=== PATIENT | male | born 1955 | race Hispanic/Latino ===

== ENCOUNTER 2017-01-16 10:03 | Day surgery (SDC) | payer OTHER ==
[2017-01-03 12:09] VITALS: BMI 29.2
[2017-01-16] MEDS ORDERED: Lidocaine 4% (Laryng-O-Jet) Kit MM ONE (12:08)
[2017-01-16] MEDS ORDERED: Midazolam 2 MG/2 ML VIAL ONE (12:08)
[2017-01-16] MEDS ORDERED: Propofol 10 mg/ml Inj (20 ML) ONE (13:06)
--- NOTE | 2017-01-16 20:31 | CARD ---
APPROVED REPORT EXAM: Two-dimensional and M-mode echocardiogram with Doppler and color Doppler. Other Information Quality : GoodRhythm : INDICATION CVA/TIA LEFT VENTRICLE The left ventricle is normal size. There is normal left ventricular wall thickness. The left ventricular function is normal. The left ventricular ejection fraction is within the normal range. There is normal LV segmental wall motion. No left ventricle thrombus noted on this study. RIGHT VENTRICLE The right ventricle is normal size. There is normal right ventricular wall thickness. The right ventricular systolic function is normal. ATRIA No thrombus is seen in the left atrium or the Atrial appendage The interatrial septum is intact with no evidence for an atrial septal defect. AORTIC VALVE The aortic valve is normal in structure. MITRAL VALVE The mitral valve is normal in structure. TRICUSPID VALVE The tricuspid valve is normal in structure. GREAT VESSELS The aortic root is normal in size. The ascending aorta is normal in size. <Conclusion> No left ventricle thrombus noted on this study. No thrombus is seen in the left atrium or the Atrial appendage The interatrial septum is intact with no evidence for an atrial septal defect.
[2017-01-17 16:40] VITALS: RESP 18; O2SAT 98
== END 2017-01-16 16:10 | disposition short-term general hospital (02) ==
LOC: C.CATHLAB 10:03
PROVIDERS: ATTEND Specialist
DX: G45.9 Transient cerebral ischemic attack, unspecified (principal)
CPT/HCPCS: 93312; J2250; J2704; J3010